=== PATIENT | male | born 1990 | race Two or more races ===

== ENCOUNTER 2025-03-17 07:24 | Day surgery (SDC) | payer OTHER ==
[2025-03-10 11:53] LABS: Hematocrit 47.5 % (41.0-53.0); Hemoglobin 16.9 g/dL (13.5-17.5); Mean Corpuscular Hemoglobin 32.7 pg (28.0-32.0); Mean Corpuscular Volume 91.9 fL (80.0-100.0); Nucleated Red Blood Cells % 0.1 %
[2025-03-10 12:04] LABS: INR 0.98 (0.9-1.15); Partial Thromboplastin Time 27.3 SEC (24.5-34.5); Prothrombin Time 10.4 sec (9.3-11.8)
[2025-03-10 12:09] LABS: Urine Protein, UAD Negative (Negative)
[2025-03-10 12:18] LABS: Alanine Aminotransferase 36 U/L (7-40); Alkaline Phosphatase 64 U/L (46-116); Anion Gap 7 (5-15); BUN/Creatinine Ratio 11.8 (10.0-20.0); Blood Urea Nitrogen 11 mg/dL (9-23); Calcium 9.3 mg/dL (8.7-10.4); Carbon Dioxide 29 mmol/L (20-31); Chloride 104 mmol/L (98-107); Glucose 89 mg/dL (74-106); Potassium 5.0 mmol/L (3.5-5.1); Sodium 140 mmol/L (136-145); Total Protein 7.3 g/dL (5.7-8.2)
[2025-03-10 12:19] LABS: Albumin 4.5 g/dL (3.2-4.8); Bilirubin, Total 0.6 mg/dL (0.2-1.0)
[2025-03-14 10:28] LABS: Hematocrit 50.1 % (41.0-53.0); Hemoglobin 17.0 g/dL (13.5-17.5); Mean Corpuscular Hemoglobin 31.4 pg (28.0-32.0); Mean Corpuscular Volume 92.2 fL (80.0-100.0); Nucleated Red Blood Cells % 0.1 %
[2025-03-14 10:44] LABS: INR 1.02 (0.9-1.15); Partial Thromboplastin Time 28.5 SEC (24.5-34.5); Prothrombin Time 10.8 sec (9.3-11.8)
[2025-03-14 11:05] LABS: Alanine Aminotransferase 25 U/L (7-40); Albumin 4.6 g/dL (3.2-4.8); Alkaline Phosphatase 67 U/L (46-116); Anion Gap 5 (5-15); BUN/Creatinine Ratio 8.7 (10.0-20.0); Calcium 9.3 mg/dL (8.7-10.4); Carbon Dioxide 30 mmol/L (20-31); Chloride 105 mmol/L (98-107); Glucose 96 mg/dL (74-106); Potassium 4.9 mmol/L (3.5-5.1); Sodium 140 mmol/L (136-145); Total Protein 7.4 g/dL (5.7-8.2)
[2025-03-14 11:06] LABS: Bilirubin, Total 0.8 mg/dL (0.2-1.0)
[2025-03-14 11:07] LABS: Urine Protein, UAD Negative (Negative)
[2025-03-14 11:19] LABS: Blood Urea Nitrogen 8 mg/dL (9-23)
[~2025-03-17] VITALS: Ht 175.3 cm; Wt 74.8 kg
[~2025-03-17 07:24] MED LIST: IBUP-1456 PO
[2025-03-17] MEDS ORDERED: ceFAZolin 2 GM/D5W50ml 50 ML IV ONE (08:08)
[2025-03-17] MEDS ORDERED: PROPOFOL 10 MG/ML 20 ML IV ONE (08:50)
[2025-03-17] MEDS ORDERED: SODIUM CHLORIDE LOCK 10 ML ONE (08:50)
[2025-03-17] MEDS ORDERED: fentaNYL CITRATE 100 MCG/2 ML VL ONE (08:50)
[2025-03-17] MEDS ORDERED: KETAMINE 50mg/ML 1ml syringe ONE (08:50)
[2025-03-17] MEDS ORDERED: MIDAZOLAM HCL 2MG/2ML 2ml VIAL (1mg/ml) ONE (08:50)
[2025-03-17] MEDS ORDERED: LIDOCAINE HCL 2% TOP JELLY 5ML TOP ONE (08:50)
[2025-03-17] MEDS ORDERED: ONDANSETRON HCL 4 MG/2 ML VIAL ONE (08:50)
[2025-03-17] MEDS ORDERED: LIDOCAINE 1% INJ PF 5ML AMP ONE (08:50)
[2025-03-17] MEDS ORDERED: HYDROmorphone HCL 2 MG/ML VL/or syr ONE (08:50)
[2025-03-17] MEDS ORDERED: BUPIVACAINE 0.5% P/F INJ 10 ML VIAL ONE (09:12)
[2025-03-17] MEDS ORDERED: LIDOCAINE W/ EPINEPHRINE 1% 20ML VIAL ONE (09:12)
[2025-03-17] MEDS ORDERED: METOCLOPRAMIDE HCL 5MG/ml INJ 2ml VIAL IV PRN (09:15)
[2025-03-17] MEDS ORDERED: MORPHINE SULFATE 4 MG/ML SYR/VIAL IV PRN (09:15)
[2025-03-17] MEDS ORDERED: HYDROmorphone HCL 2 MG/ML VL/or syr IV PRN (09:15)
[2025-03-17] MEDS ORDERED: KETOROLAC TROMETH 30 MG/ML 1ML VIAL IV ONE (09:15)
[2025-03-17] MEDS ORDERED: ceFAZolin 1GM VL ONE (09:21)
[2025-03-17] MEDS ORDERED: MORPHINE SULFATE INJ 2 MG/ml SYRG IV PRN (09:56)
[2025-03-17 10:34] VITALS: PULSE 58; RESP 12; TEMP 97.4
--- NOTE | 2025-03-17 11:03 | DVHOP ---
DATE OF SURGERY: 03/17/2025 PREOPERATIVE DIAGNOSIS: Left inguinal hernia. POSTOPERATIVE DIAGNOSIS: Left indirect inguinal hernia. SURGEON: Christiano Condon MD OSTEOPATHY DOCTOR: Rolando Enrique. ANESTHESIA: General. ANESTHESIOLOGIST: Dr. Causey. PROCEDURE: Repair of left inguinal hernia. DESCRIPTION OF PROCEDURE: Under adequate anesthesia, with the patient's skin prepped and draped and infiltrated with 0.25% Marcaine and 0.5% Xylocaine with epinephrine, the patient's incision was made over the palpable visible bulge and the incision deepened with electrocautery to the depth of the external oblique aponeurosis. The cord structures were encircled and retracted with a Erick drain. Numerous small blood vessels became obvious in the floor of the inguinal canal. These were retracted and pressure applied in order to limit the bleeding from these little blood vessels and the hernia sac was then identified, opened, digitally explored, traced high up into the internal inguinal ring where it was doubly ligated and the excess peritoneum amputated and submitted for histopathologic confirmation. The ilioinguinal nerve was retracted laterally and protected at all times. The floor of the hernia was approximated using interrupted nonabsorbable sutures through the conjoint tendon and reflecting part of Poupart's ligament. The wound was then irrigated. Cord structures and ilioinguinal nerve returned back into the normal anatomical position. Testicle placed into its normal anatomical position. The wound was irrigated. Hemostasis was accomplished and skin and subcutaneous tissues were approximated using Monocryl sutures, Dermabond glue, and Steri-Strips. The patient remained stable throughout the procedure, left the operating room following an accurate needle and sponge counts. His was thoroughly informed at [phone]. MD TIA Vu/KENDAL TID: [id number] RECEIPT: [id number]
[2025-03-17] MEDS: HYDROmorphone HCL 2 MG/ML VL/or syr IV PRN (11:13)
[2025-03-17 11:40] VITALS: BP 130/80; PULSE 64; RESP 12; O2SAT 100
== END 2025-03-17 11:58 | disposition home or self-care (01) ==
LOC: SUR 07:24
PROVIDERS: ATTEND Surgery
DX: K40.90 Unilateral inguinal hernia, without obstruction or gangrene, not specified as recurrent (principal); Z98.890 Other specified postprocedural states
CPT/HCPCS: 36415; 49505; 80053; 81001; 85025; 85610; 85730; 86850; 86900; 86901; 88302; J0690; J1100; J1171; J2250; J2405; J2704; J3010; J3490